=== PATIENT | female | born 1935 | race Hispanic/Latino ===

== ENCOUNTER 2019-01-09 16:07 | Inpatient (IN) | payer MEDICARE, OTHER ==
[2019-01-09 16:10] VITALS: BMI 32.1
[2019-01-09] MEDS ORDERED: Metoprolol 1 mg/ml Inj ONE (16:20)
[2019-01-09] MEDS ORDERED: Nitroglycerin 50mg in D5W 50 MG/250 ML BOTTLE IV ONE (16:26)
[2019-01-09 16:40] VITALS: TEMP 97.5
[2019-01-09 16:42] LABS: BASO # 0.02 K/mm3 (0.0-2.0); BASO % 0.1 % (0.0-3.0); EOS % 0.1 % (1.5-5.0); HEMOGLOBIN 13.9 g/dL (12.0-16.0); LYMPH % 8.3 % (22.0-35.0); MEAN CELL VOLUME 87.7 fl (80.0-105.0); MEAN CORPUSCULAR HEMOGLOBIN 29.5 pg (25.0-35.0); MEAN CORPUSCULAR HGB CONC 33.7 g/dl (31.0-37.0); MEAN PLATELET VOLUME 10.6 fl (7.0-11.0); MONO # 1.1 (0.1-0.6); MONO % 4.5 % (1.0-6.0); RBC 4.71 10^6/uL (3.5-6.1); RED CELL DISTRIBUTION WIDTH 12.6 % (11.5-14.5); WHITE BLOOD COUNT 24.4 10^3/uL (4.5-11.0)
[2019-01-09 16:52] LABS: INR 1.05; PARTIAL THROMBOPLASTIN TIME 38.6 Seconds (26.9-38.3); PROTHROMBIN TIME 11.6 SECONDS (9.4-12.5)
[2019-01-09 16:58] LABS: ARTERIAL BLOOD GAS HCO3 21.3 mmol/L (21-28); ARTERIAL BLOOD GAS O2 SAT 95.6 % (95-98); ARTERIAL BLOOD GAS PCO2 57 mm/Hg (35-45); ARTERIAL BLOOD GAS PH 7.18 (7.35-7.45)
[2019-01-09 16:59] LABS: PH,URINE 6.5 (4.7-8.0); URINE APPEARANCE CLEAR (CLEAR); URINE BILIRUBIN NEGATIVE (NEGATIVE); URINE BLOOD TRACE-INTACT (NEGATIVE); URINE COLOR LIGHT YELLOW (YELLOW); URINE GLUCOSE (UA) 250 mg/dL (NEGATIVE); URINE LEUKOCYTE ESTERASE NEGATIVE Leu/uL (NEGATIVE); URINE PROTEIN 100 mg/dL (<30 mg/dL); URINE UROBILINOGEN 0.2 E.U./dL (<1 E.U./dL)
[2019-01-09 17:26] LABS: ALB/GLOB RATIO 1.3 (1.1-1.8); ALBUMIN 4.7 g/dL (3.0-4.8); ALT/SGPT 38 U/L (7-56); AST/SGOT 46 U/L (14-36); B-TYPE NATRIURETIC PEPTIDE 618 pg/mL (0-450); BLOOD UREA NITROGEN 19 mg/dL (7-21); CALCIUM 8.6 mg/dL (8.4-10.5); GFR NON-AFRICAN AMERICAN > 60; TROPONIN I 0.55 ng/mL
[2019-01-09] MEDS ORDERED: Metoprolol 1 mg/ml Inj IVP STA (17:31)
[2019-01-09] MEDS ORDERED: Nitroglycerin 50mg in D5W 50 MG/250 ML BOTTLE IV PRN (17:33)
--- NOTE | 2019-01-09 17:33 | ED PDOC ---
Arrival/HPI - General Chief Complaint: Respiratory Distress Historian: , EMS - Critical Care Critical Care Minutes: 90 minutes Critical Care Time: Unstable - History of Present Illness Narrative History of Present Illness (Text): 01/09/19 17:34 83 year old female, with a past medial history of hypertension, who presents to the emergency department BIB EMS for being unresponsive. As per family, patient was found sitting in the chair at 3:30pm, unable to be aroused. Paramedics attempted intubation, and was able to place supraglottic. EKG showed questionable STEMI. As per EMS, patient never lost pulses in the field. Time/Duration: Prior to Arrival Symptom Onset: Sudden Context: Home Past Medical History - Provider Review Nursing Documentation Reviewed: Yes - Infectious Disease Hx of Infectious Diseases: None - Reproductive Menopause: Yes - Cardiac Hx Cardiac Disorders: Yes Hx Hypertension: Yes - Neurological Hx Paralysis: No - Hematological/Oncological Hx Blood Transfusions: No - Musculoskeletal/Rheumatological Hx Musculoskeletal Disorders: No - Psychiatric Hx Emotional Abuse: No Hx Physical Abuse: No Hx Substance Use: No - Anesthesia Hx Anesthesia Reactions: No Hx Malignant Hyperthermia: No - Suicidal Assessment Feels Threatened In Home Enviroment: No Family/Social History - Physician Review Nursing Documentation Reviewed: Yes Family/Social History: Unknown Family HX Smoking Status: Unknown If Ever Smoked Hx Alcohol Use: No Hx Substance Use: No Hx Substance Use Treatment: No Allergies/Home Meds Allergies/Adverse Reactions: Allergies No Known Allergies Allergy (Verified 06/19/12 13:09) Home Medications: Home Meds Medication Instructions Recorded Confirmed Hydrochlorothiazide/Metoprol 1 tab PO DAILY 07/23/14 07/23/14 [Lopressor Hct 25 mg-50 mg] Review of Systems - Physician Review All systems were reviewed & negative as marked: Yes - Review of Systems Systems not reviewed;Unavailable: Other (ROS limited to EMS, and daughter.) Physical Exam - Physical Exam Physical Exam Limitations: Other Vital Signs Temp Pulse Resp BP Pulse Ox 01/09/19 16:26 97 H 199/128 H 01/09/19 16:21 97.5 F L 120 H 16 219/140 H 97 01/09/19 16:14 20 95 - Systems Exam Head: Present: Atraumatic, Normocephalic Pupils: Present: Other (fixed at 3mm, non reactive to light). No: PERRL Extroacular Muscles: Present: EOMI Conjunctiva: Present: Normal Respiratory/Chest: Present: Clear to Auscultation, Other (mechanical ventilation ) Cardiovascular: Present: Regular Rate and Rhythm Abdomen: No: Tenderness, Distention, Peritoneal Signs Upper Extremity: Present: Normal Inspection. No: Cyanosis, Edema Lower Extremity: Present: Edema (trace edma ) Skin: Present: Dry, Other (some mottling noted ). No: Rashes Psychiatric: Present: Alert, Oriented x 3, Normal Insight, Normal Concentration Medical Decision Making ED Course and Treatment: 01/09/19 17:30 Impression: 83 year old female presents to the emergency department BIB EMS for being unresponsive. Differential Diagnosis included but are not limited to: Plan: -- ABG -- CT abdomen and pelvis -- CT head -- EKG -- Labs -- Chest X-ray -- Lipitor -- Lopressor -- Maxipime -- Nitroglycerin -- Protonix -- Potassium chloride -- Vancomycin -- Urinalysis -- Blood culture -- Reassess and disposition Prior Visits: Notes and results from previous visits were reviewed. Progress Notes: 01/09/19 17:48 PROCEDURE: INTUBATION Performed by the emergency provider Time: 16:58 Intubated using mac 4, no statin. Consent: was precluded by the urgency of the procedure and the patient condition. Pre-oxygenation: [id number] ETT Size: 7.5 Confirmation: Cords directly visualized as tube passed, good bilateral breath sounds, positive CO2 detector color change, tube fogging, adequate chest rise, improving pulse oximetry reading, improved skin color, and absence of gastric sounds,. Post-Procedure: There were no immediate complications. CXR Confirmation: Yes 01/09/19 17:[address] Sellers, patient will be admitted to his service. Spoke to Dr. Lee (ship painter helper), sensitized here. Spoke to Dr. Hodge(cardiology) immediately after EKG, who states patient is not a candidate for catheterizat ion, secondary to unknown downtime and status. - Lab Interpretations Lab Results: pCO2 57 mm/Hg (35-45) H 01/09/19 16:48 pO2 76.0 mm/Hg (80-100) L 01/09/19 16:48 HCO3 21.3 mmol/L (21-28) 01/09/19 16:48 ABG pH 7.18 (7.35-7.45) L* 01/09/19 16:48 ABG Total CO2 23.0 mmol.L (22-28) 01/09/19 16:48 ABG O2 Saturation 95.6 % (95-98) 01/09/19 16:48 ABG Base Excess -7.7 mmol/L (-2.0-3.0) L 01/09/19 16:48 ABG Potassium 3.1 mmol/L (3.6-5.2) L 01/09/19 16:48 Sodium 138.0 mmol/L (132-148) 01/09/19 16:48 Chloride 107.0 mmol/L (98-107) 01/09/19 16:48 Glucose 199 mg/dl (65-105) H 01/09/19 16:48 Lactate 3.0 mmol/L (0.7-2.1) H 01/09/19 16:48 FiO2 100.0 % 01/09/19 16:48 Crit Value Called To Dr cunningham 01/09/19 16:48 Crit Value Called By 4500 01/09/19 16:48 Blood Gas Notified Time 1656 01/09/19 16:48 PT 11.6 SECONDS (9.4-12.5) 01/09/19 16:30 INR 1.05 01/09/19 16:30 APTT 38.6 Seconds (26.9-38.3) H 01/09/19 16:30 Troponin I 0.55 ng/mL H* 01/09/19 16:30 NT-Pro-B Natriuret Pep 618 pg/mL (0-450) H 01/09/19 16:30 Total Bilirubin 0.5 mg/dL (0.2-1.3) 01/09/19 16:30 AST 46 U/L (14-36) H D 01/09/19 16:30 ALT 38 U/L (7-56) 01/09/19 16:30 Alkaline Phosphatase 85 U/L (38-126) 01/09/19 16:30 Total Protein 8.2 g/dL (5.8-8.3) 01/09/19 16:30 Albumin 4.7 g/dL (3.0-4.8) 01/09/19 16:30 Globulin 3.5 gm/dL 01/09/19 16:30 Albumin/Globulin Ratio 1.3 (1.1-1.8) 01/09/19 16:30 Urine Color Light yellow (YELLOW) 01/09/19 16:40 Urine Appearance Clear (CLEAR) 01/09/19 16:40 Urine pH 6.5 (4.7-8.0) 01/09/19 16:40 Ur Specific [place] 1.025 (1.005-1.035) 01/09/19 16:40 Urine Protein 100 mg/dL (<30 mg/dL) H 01/09/19 16:40 Urine Glucose (UA) 250 mg/dL (NEGATIVE) H 01/09/19 16:40 Urine Ketones Trace mg/dL (NEGATIVE) H 01/09/19 16:40 Urine Blood Trace-intact (NEGATIVE) H 01/09/19 16:40 Urine Nitrate Negative (NEGATIVE) 01/09/19 16:40 Urine Bilirubin Negative (NEGATIVE) 01/09/19 16:40 Urine Urobilinogen 0.2 E.U./dL (<1 E.U./dL) 01/09/19 16:40 Ur Leukocyte Esterase Negative [place]/uL (NEGATIVE) 01/09/19 16:40 Urine RBC 1 - 3 /hpf (0-2) H 01/09/19 16:40 Urine WBC None /hpf (0-6) 01/09/19 16:40 Ur Epithelial Cells None /hpf (0-5) 01/09/19 16:40 - RAD Interpretation Radiology Orders: 01/09/19 16:33 CHEST PORTABLE [RAD] Stat 01/09/19 16:57 HEAD W/O CONTRAST [CT] Stat - EKG Interpretation EKG Interpretation (Text): 01/09/19 17:42 EKG reviewed, shows: Sinus tachycardia at 123 bpm, normal axis, multiple PVCs noted, questionable ST elevation, Q wave depression at V1-V6 Interpreted by ED Physician: Yes - Scribe Statement The provider has reviewed the documentation as recorded by the Zaida Velázquez Provider Scribe Attestation: All medical record entries made by the Scribe were at my direction and personally dictated by me. I have reviewed the chart and agree that the record accurately reflects my personal performance of the history, physical exam, medical decision making, and the department course for this patient. I have also personally directed, reviewed, and agree with the discharge instructions and disposition. Disposition/Present on Arrival - Present on Arrival Any Indicators Present on Arrival: No History of DVT/PE: No History of Uncontrolled Diabetes: No Urinary Catheter: No History of Decub. Ulcer: No History Surgical Site Infection Following: None - Disposition Have Diagnosis and Disposition been Completed?: Yes Diagnosis: Intracerebral bleed, Elevated troponin, Respiratory failure requiring intubation, Unresponsive Disposition: HOSPITALIZED Disposition Time: 17:00 Condition: CRITICAL
[2019-01-09 17:40] VITALS: BP 183/110; RESP 20
[2019-01-09] MEDS ORDERED: Vancomycin 1gm in NS 250ml 1 GM/250 ML BAG IVPB SCH (17:45)
[2019-01-09] MEDS ORDERED: Cefepime 1gm in NS 100ml 1 GM/100 ML BAG IVPB SCH (17:45)
[2019-01-09] MEDS ORDERED: diltiaZEM IVPB 100mg in NS 100 ML IV PRN (18:16)
[2019-01-09] MEDS ORDERED: Nicardipine 20 MG/200 ML 20 MG/200 ML BAG IV PRN (18:39)
--- NOTE | 2019-01-09 18:39 | CT ---
Date of service: 01/09/2019 PROCEDURE: CT HEAD WITHOUT CONTRAST. HISTORY: AMS COMPARISON: None available. TECHNIQUE: Axial computed tomography images were obtained through the head/brain without intravenous contrast. Radiation dose: Total exam DLP = 981.9 mGy-cm. This CT exam was performed using one or more of the following dose reduction techniques: Automated exposure control, adjustment of the mA and/or kV according to patient size, and/or use of iterative reconstruction technique. FINDINGS: HEMORRHAGE: There is large parenchymal hemorrhage at the left basal ganglia extending to the left temporal frontal and parietal lobe measures 11 centimeter in the largest AP diameter and 5.1 centimeter in the transverse diameter. There is also moderate amount of intraventricular hemorrhage. There are foci of subarachnoid hemorrhage at the bilateral cerebral hemisphere larger and more on the left. There is also subdural hemorrhage along the interhemispheric fissure more prominent at the frontal region. BRAIN: There is diffuse effacement of the sulci suggestive of cerebral hemispheres associated with diffuse brain edema. There is approximately 1.9 centimeter [id number] midline shift associated with subfalcine herniation. There is complete effacement of the basilar cistern and findings suspicious for transtentorial herniation. VENTRICLES: Moderately dilated right lateral ventricle suggestive of entrapment due to subfalcine herniation. Moderate amount of intraventricular hemorrhage noted at the lateral ,3rd and 4th ventricles. CALVARIUM: Unremarkable. PARANASAL SINUSES: Complete opacification of the left sphenoid sinus noted. MASTOID AIR CELLS: Unremarkable as visualized. No inflammatory changes. OTHER FINDINGS: None. IMPRESSION: Large left cerebral intraparenchymal hemorrhage measures approximately 11 x 5.1 centimeter. Moderate amount of intraventricular hemorrhage. 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 Diffuse effacement of the cerebral sulci suggestive of brain edema and increased intracranial pressure. Moderate enlargement of the right lateral ventricle likely due to ventricular entrapment due to subfalcine herniation. The above findings were reported to the emergency room physician at 6:25 p.m. on 01/09/2019.
[2019-01-09 18:42] VITALS: PULSE 91; O2SAT 82
--- NOTE | 2019-01-09 19:36 | CP.PCM.HP ---
History of Present Illness - History of Present Illness History of Present Illness: Alise Montanez, PGY-1, Internal Medicine History and Physical for Dr. Berry 83 year old female with past medical history of hypertension presented unresponsive to the emergency department. As per family, patient was found sitting at chair at 3:30 unable to be aroused. Paramedics attempted intubation and was able to place supraglottic. As per EMS, patient never lost pulse in the field and was brought to the emergency department. Upon presenting to the emergency department, patient was intubated. As per family, patient was general ly in good health. However, patient was not compliant with blood pressure medication. 12-point ROS was unattainable due to patient's intubated status. PMH: hypertension PSH: appendectomy, cholecystectomy FMHx: non-contributary SHx: denies smoking, drinking, recreational drug use Allergies: NKDA Much of this history was obtained from family and prior notes Present on Admission - Present on Admission Any Indicators Present on Admission: No Review of Systems - Review of Systems Systems not reviewed;Unavailable: Intubated Past Patient History - Infectious Disease Hx of Infectious Diseases: None - Past Social History Smoking Status: Unknown If Ever Smoked - CARDIAC Hx Cardiac Disorders: Yes Hx Hypertension: Yes - NEUROLOGICAL Hx Paralysis: No - HEMATOLOGICAL/ONCOLOGICAL Hx Blood Transfusions: No - MUSCULOSKELETAL/RHEUMATOLOGICAL Hx Musculoskeletal Disorders: No - PSYCHIATRIC Hx Emotional Abuse: No Hx Physical Abuse: No Hx Substance Use: No - SURGICAL HISTORY Hx Surgeries: Yes - ANESTHESIA Hx Anesthesia Reactions: No Hx Malignant Hyperthermia: No Meds Allergies/Adverse Reactions: Allergies Allergy/AdvReac Type Severity Reaction Status Date / Time No Known Allergies Allergy Verified 06/19/12 13:09 Physical Exam - Constitutional Additional comments: intubated - Head Exam Head Exam: ATRAUMATIC, NORMAL INSPECTION, NORMOCEPHALIC - Eye Exam Additional comments: pupils unresponsive - ENT Exam ENT Exam: Mucous Membranes Moist - Neck Exam Neck exam: Positive for: Normal Inspection - Respiratory Exam Respiratory Exam: Clear to Auscultation Bilateral, NORMAL BREATHING PATTERN (on vent) - Cardiovascular Exam Cardiovascular Exam: REGULAR RHYTHM, RRR, +S1, +S2. absent: Clicks, Gallop, Rubs - GI/Abdominal Exam GI & Abdominal Exam: Normal Bowel Sounds, Soft. absent: Distended, Firm, Guarding, Tenderness - Extremities Exam Extremities exam: Positive for: normal inspection Additional comments: limited due to intubation status - Neurological Exam Additional comments: limited due to intubation status - Skin Skin Exam: Dry, Intact, Normal Color Results - Vital Signs Recent Vital Signs: Last Vital Signs Temp 97.5 F L 01/09/19 16:21 Pulse 91 H 01/09/19 18:39 Resp 20 01/09/19 17:39 BP 183/110 H 01/09/19 17:39 Pulse Ox 82 L 01/09/19 18:39 - Labs Result Diagrams: 01/09/19 16:30 01/09/19 16:30 Labs: Laboratory Results - last 24 hr 01/09/19 01/09/19 01/09/19 16:30 16:30 16:30 WBC 24.4 H D RBC 4.71 Hgb 13.9 Hct 41.3 MCV 87.7 MCH 29.5 MCHC 33.7 RDW 12.6 Plt Count 210 MPV 10.6 Neut % (Auto) 87.0 H Lymph % (Auto) 8.3 L [place] % (Auto) 4.5 Eos % (Auto) 0.1 L Baso % (Auto) 0.1 Lymph # (Auto) 2.0 [place] # (Auto) 1.1 H Eos # (Auto) 0.0 Baso # (Auto) 0.02 Absolute Neuts (auto) 21.26 H PT 11.6 INR 1.05 APTT 38.6 H pCO2 pO2 HCO3 ABG pH ABG Total CO2 ABG O2 Saturation ABG Base Excess ABG Potassium Glucose Lactate FiO2 Crit Value Called To Crit Value Called By Blood Gas Notified Time Sodium 144 Potassium 2.6 L* D Chloride 105 Carbon Dioxide 21 Anion Gap 21 H BUN 19 Creatinine 0.6 L Est GFR ( Amer) > 60 Est GFR (Non-Af Amer) > 60 Random Glucose 228 H Calcium 8.6 Total Bilirubin 0.5 AST 46 H D ALT 38 Alkaline Phosphatase 85 Lactate Dehydrogenase 779 H Total Creatine Kinase 82 Troponin I 0.55 H* NT-Pro-B Natriuret Pep 618 H Total Protein 8.2 Albumin 4.7 Globulin 3.5 Albumin/Globulin Ratio 1.3 Arterial Blood Potassium Urine Color Urine Appearance Urine pH Ur Specific [place] Urine Protein Urine Glucose (UA) Urine Ketones Urine Blood Urine Nitrate Urine Bilirubin Urine Urobilinogen Ur Leukocyte Esterase Urine RBC Urine WBC Ur Epithelial Cells 01/09/19 01/09/19 16:40 16:48 WBC RBC Hgb Hct MCV MCH MCHC RDW Plt Count MPV Neut % (Auto) Lymph % (Auto) [place] % (Auto) Eos % (Auto) Baso % (Auto) Lymph # (Auto) [place] # (Auto) Eos # (Auto) Baso # (Auto) Absolute Neuts (auto) PT INR APTT pCO2 57 H pO2 76.0 L HCO3 21.3 ABG pH 7.18 L* ABG Total CO2 23.0 ABG O2 Saturation 95.6 ABG Base Excess -7.7 L ABG Potassium 3.1 L Glucose 199 H Lactate 3.0 H FiO2 100.0 Crit Value Called To Dr cunningham Crit Value Called By 4500 Blood Gas Notified Time 1656 Sodium 138.0 Potassium Chloride 107.0 Carbon Dioxide Anion Gap BUN Creatinine Est GFR ( Amer) Est GFR (Non-Af Amer) Random Glucose Calcium Total Bilirubin AST ALT Alkaline Phosphatase Lactate Dehydrogenase Total Creatine Kinase Troponin I NT-Pro-B Natriuret Pep Total Protein Albumin Globulin Albumin/Globulin Ratio Arterial Blood Potassium 3.1 L Urine Color Light yellow Urine Appearance Clear Urine pH 6.5 Ur Specific [place] 1.025 Urine Protein 100 H Urine Glucose (UA) 250 H Urine Ketones Trace H Urine Blood Trace-intact H Urine Nitrate Negative Urine Bilirubin Negative Urine Urobilinogen 0.2 Ur Leukocyte Esterase Negative Urine RBC 1 - 3 H Urine WBC None Ur Epithelial Cells None Assessment & Plan - Assessment and Plan (Free Text) Assessment: 83 year old female with past medical history of hypertension presented to the emergency department unresponsive. Head CT on presentation showed large left cerebral intraparenchymal hemorrhage measuring 11x5.1 centimer. There was moderate amount of intraventricular hemorrhage. Findings were suggestive of subfalcine and transtentorial herniation. There was diffuse effacement of the cerebral sulci suggestive of brain edema and increased ICP. There was moderate enlargement of the right lateral ventricle likely 2/2 to ventricular entrapment due to subfalcine herniation. Blood pressure was 222/137 on admission. Patient was started on cardene drip to reduce blood pressure to goal of systolic blood pressure of 140-160 and was eventually controlled. Neurology, Dr. Munroe, and Neurosurgery, Dr. Ardon, were contacted who reported that patient prognosis was poor and no surgical recommendations were present. Plan: Acute ICH -Head CT on presentation showed large left cerebral intraparenchymal hemorrhage measuring 11x5.1 centimer. There was moderate amount of intraventricular hemorrhage. Findings were suggestive of subfalcine and transtentorial herniation. There was diffuse effacement of the cerebral sulci suggestive of brain edema and increased ICP. There was moderate enlargement of the right lateral ventricle likely 2/2 to ventricular entrapment due to subfalcine herniation. -Blood pressure was 222/137 on admission. Patient was started on cardene drip to reduce blood pressure to goal of systolic blood pressure of 140-160 and was eventually controlled. -Neurology, Dr. Munroe, and Neurosurgery, Dr. Ardon, were contacted who reported that patient prognosis was poor and no surgical recommendations were present. Disposition: Patient's ventilator settings were 250/25/10/100%. Patient's blood pressure started to reduce and O2 saturation started to reduce to under 60%. Cardene drip was discontinued but patient's blood pressure continued to reduce. Subsequently, Dr. Mccabe and I went and talked to the family and discussed DNR with them. Family decided that they would not want patient to be resuscitated as patient would not have wanted that herself. As we were walking back to the ICU, patient had cardiac arrest. Compressions were about to be started and compressions was called off at the request of the family. Verbal consent was given for DNR, but time was not available to give written consent. Patient at 19:00 on 01/09. Case was discussed with Dr. Berry. - Date & Time Date: 01/09/19 Time: 19:38
--- NOTE | 2019-01-09 19:54 | CP.PCM.PN ---
Subjective - Date & Time of Evaluation Date of Evaluation: 01/09/19 Time of Evaluation: 19:46 - Subjective Subjective: PGY-[address] Berry Myself and another resident were having a family meeting regarding code status at which time the health care proxy, daughter Zoie Melgoza, present with other family members, having understood what CPR entails, stated she did not want CPR to be done if her mother went into cardiac arrest. The daughter stated the patient would not have wanted CPR to be done in this type of situation. During this family meeting a code blue was called by the RN. Myself and the other resident rushed to the room where chest compressions were being performed. I attained verbal confirmation from the daughter once again to stop chest compressions. I immediately conveyed this to the RN who was performing chest compressions, and CPR was stopped immediately. Total ACLS time was < 20 seconds. Objective - Vital Signs/Intake and Output Vital Signs (last 24 hours): Temp Pulse Resp BP Pulse Ox 97.5 F L 91 H 20 183/110 H 82 L 01/09/19 16:21 01/09/19 18:39 01/09/19 17:39 01/09/19 17:39 01/09/19 18:39 - Medications Medications: Current Medications Atorvastatin Calcium (Lipitor) 40 mg PO DIN WILLA Potassium Chloride (Potassium Chloride 10 Meq/100 Ml) 10 meq in 100 mls @ 100 mls/hr IVPB Q2H WILLA Stop: 01/09/19 20:44 Cefepime HCl (Maxipime 1gm) 1 gm in 100 mls @ 100 mls/hr IVPB Q8 WILLA; Protocol Vancomycin HCl (Vancomycin 1gm) 1 gm in 250 mls @ 167 mls/hr IVPB Q12H WILLA; Protocol Last Admin: 01/09/19 18:49 Dose: 167 mls/hr Nicardipine HCl (Cardene Iv Premix) 20 mg in 200 mls @ 50 mls/hr IV .Q4H PRN; Protocol PRN Reason: TITRATE PER MD ORDER Last Admin: 01/09/19 18:30 Dose: 5 mg/hr, 50 mls/hr Metoprolol Tartrate (Lopressor) 25 mg PO BID WILLA Pantoprazole Sodium (Protonix Inj) 40 mg IVP DAILY WILLA - Labs Labs: 01/09/19 16:30 01/09/19 16:30 PT 11.6 SECONDS (9.4-12.5) 01/09/19 16:30 INR 1.05 01/09/19 16:30 APTT 38.6 Seconds (26.9-38.3) H 01/09/19 16:30
--- NOTE | 2019-01-09 20:02 | CP.PCM.PRO ---
Pronouncement of Note - Clinical Findings Physical Exam: No Response Verbal/Painful Stimuli, Absent Peripheral Puls es{Carotid & Femoral}, Absent Heart & Breath Sounds, No Pupillary Light Reflex, No Corneal Reflex, Pupils Fixed & Dilated, Absence of Vital Signs - Pronouncement Time Time of Pronouncement of : 21:35 - Notifications Pronouncement Notifications: Family Notified, Atending Notified Laboratory Equipment Installer Notified: Yes - Autopsy Autopsy Requested: No - [place] [id number]
--- NOTE | 2019-01-10 05:29 | CON ---
DATE OF CONSULTATION: 01/09/2019 HISTORY OF PRESENT ILLNESS: The patient is an 83-year-old lady, who was found unresponsive by her daughter. The last time she was seen in her usual state of health was about 1 day ago. No further [facility], PMH are available at present time, as the patient is currently intubated. The patient was unresponsive upon admission to ER. EMS was trying to intubate her, however, unsuccessfully. Of note, the patient never had cardiac arrest on her trip to ER and never lost her pulse during her stay in the emergency room as well. She was found to have elevated blood pressure with systolic up to more than 200s. She was started on nitroglycerin drip with some drop in blood pressure. She was also found to have dilated and fixed pupils. The patient is not on any sedation and unresponsive to painful stimuli. No history of fever, chills, sweats, nausea, vomiting, diarrhea, or constipation present. PAST MEDICAL HISTORY: Hypertension. MEDICATIONS: Unobtainable. ALLERGIES: NKDA. FAMILY HISTORY: Noncontributory. SOCIAL HISTORY: Unobtainable. PHYSICAL EXAMINATION: VITAL SIGNS: Temperature 97.5, heart rate 97, blood pressure 199/128, respiratory rate 16, oxygen saturation 97% on 100% FiO2. GENERAL: The patient is intubated. She is on PRVC. HEENT: ENT: Head and neck atraumatic. The patient is intubated. LUNGS: Clear to auscultation bilaterally. HEART: Regular rate and rhythm, S1 and S2 normal. ABDOMEN: Soft, nontender, nondistended. MUSCULOSKELETAL: No C/C/E. NEURO: The patient is not moving any of her extremities. SKIN: Moist. PSYCH: The patient is unresponsive to painful stimuli. LABORATORY DATA: WBC 24.4, hemoglobin 13.9, platelet count 210. Chemistries pending. ABG 7.18/57/76. Lactic acid 3. Minute ventilation was increased. ABG will be redone. Chest x-ray showed bilateral vascular congestion. Chest x-ray showed sinus tachycardia with frequent PVCs. Substantial ST depression at V4, V5, and V6, questionable ST elevation. ASSESSMENT AND PLAN: This is an 83-year-old lady with history of hypertension, who was found to be unresponsive with signs of pulmonary edema and not responsive to painful stimuli. Bedside echocardiogram revealed left and right ventricles without severe systolic dysfunction. IVC is small and collapsible more than 50% on inspiration. At the present time, the possibility of stroke, either ischemic or hemorrhagic is very high on my differential diagnosis list. The patient will be going for a stat CAT scan of the head. If negative, MRI of the brain will be ordered next. At the present time, until we have more information about the patient's diagnosis, maximum supportive measures will be instituted including ventilatory and hemodynamic support. NEURO: The patient is unresponsive to painful stimuli. Pupils are dilated, symmetric, not responsive to light. She is not triggering breath on the ventilator. CAT scan of the brain and Neurology consult will be requested. PULMONARY: At the present time, we will proceed with protective lung ventilation strategy including tidal volume 4-8 mL per predicted body weight and plateau pressure less than 28 cm of water. Head of bed elevated >35 degrees, oral hygiene, deep vein thrombosis and gastrointestinal prophylaxis. Gentle hydration, but will avoid significantly positive fluid balance. We will try to avoid over ventilation as well. We will repeat ABG. Respiratory rate was increased from 15 to 20 to increase minute ventilation. We will work with higher PEEP/FiO2 ratio. We will continue with conservative oxygen management. CARDIOVASCULAR: The patient does have significantly elevated blood pressure. She is on nitro drip, her blood pressure started to trending down. There is no severe left to right ventricular systolic dysfunction based on POC bedside ultrasound performed here the ER. Official/formal echocardiogram is pending to have better details of her cardiac anatomy and physiology. Dr. Hodge is the morning nanny and is aware about the case. INFECTIOUS DISEASE: I have low suspicion for infectious process as a prevailing etiology here and leukocytosis that the patient has, most likely reactive. I will however start the patient on empiric antibiotics and initiate septic workup including blood culture, urine culture, urine for Legionella streptococcal antigen and procalcitonin untill dominating etiology of patient's clinical deterioration is determined (CTH will be done david). GASTROINTESTINAL: The patient will be n.p.o. for now. Gastrointestinal prophylaxis. ENDOCRINE: We will maintain blood glucose within 140-180 range according to NICE-SUGAR trial.. RENAL: We will try to avoid hypovolemia, hypoglycemia, and hyperchloremia. We will maintain mean arterial pressure more than 65. The patient will be admitted to ICU. Addendum: CTH: massive hemorrhage with significant mass effect. spoke with neurosurgery, Dr. Porter-->not a candidate for neurosurgical intervention. neuro consult is pending. spoke with family and made them aware about the new finding. they are waiting for neurology eval for prognostication. will maintain BP 140-160, avoid heparin, maintain ph 7.35-7.45, avoid fever, maintain euglycemia ccm time 40 min Perry Lee MD CARLIN
--- NOTE | 2019-01-10 08:18 | RAD ---
Date of service: 01/09/2019 HISTORY: AMS COMPARISON: 09/23/2012 TECHNIQUE: 1 view obtained. FINDINGS: LUNGS: Perihilar infiltrates consistent with CHF PLEURA: No significant pleural effusion identified, no pneumothorax apparent. CARDIOVASCULAR: No aortic atherosclerotic calcification present. Mild cardiomegaly CHF OSSEOUS STRUCTURES: No significant abnormalities. VISUALIZED UPPER ABDOMEN: Normal. OTHER FINDINGS: Endotracheal and nasogastric tubes in satisfactory position IMPRESSION: CHF
--- NOTE | 2019-01-10 09:05 | CARD ---
APPROVED REPORT Date of service: 01/09/2019 EKG Measurement Heart [id number] <Conclusion> Sinus tachycardia with frequent premature ventricular complexes ST Deprtession ,considrer ischemia and NSTEMI Vs LVH with Strain pATTERN, CORELATE CLINICALLY. Abnormal ECG
== END 2019-01-09 19:35 | DRG 64 ==
LOC: ED 16:07 → ERH 17:29 → ED 17:40 → ICU 18:13
PROVIDERS: ADMIT Hospitalist; ATTEND Hospitalist
PROC: 5A1935Z Respiratory Ventilation, Less than 24 Consecutive Hours (ICD-10-PCS; principal; 2019-01-09)
PROC: 0BH17EZ Insertion of Endotracheal Airway into Trachea, Via Natural or Artificial Opening (ICD-10-PCS; 2019-01-09)
DX: I61.5 Nontraumatic intracerebral hemorrhage, intraventricular (principal); J96.90 Respiratory failure, unspecified, unspecified whether with hypoxia or hypercapnia; G93.5 Compression of brain; I21.3 ST elevation (STEMI) myocardial infarction of unspecified site; H57.04 Mydriasis; I10 Essential (primary) hypertension; I46.9 Cardiac arrest, cause unspecified; Z66 Do not resuscitate; R00.0 Tachycardia, unspecified; I49.3 Ventricular premature depolarization